=== PATIENT | female | born 2005 | race Caucasian/White ===

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

== ENCOUNTER 2023-05-02 20:35 | Emergency (ER) | payer OTHER ==
[~2023-05-02] VITALS: Ht 162.6 cm; Wt 54.4 kg
[2023-05-02 20:52] VITALS: BP 119/87
[2023-05-02 20:54] LABS: Source, Urine Clean Catch
[2023-05-02 20:58] LABS: Appearance, Urine Hazy (Clear); Bilirubin, Urine Neg (Neg); Blood, Urine 2+ (Neg); Color, Urine Yellow (P-Yellow); Glucose Qualitative, Urine Neg (Neg); Ketones, Urine Neg (Neg); Leukocyte Esterase, Urine 3+ (Neg); Nitrite, Urine Neg (Neg); Protein, Urine 2+ (Neg); Specific Gravity, Urine 1.015 (1.003-1.022); Urobilinogen, Urine NORM (Normal); pH, Urine 6.5 (5.0-8.0)
[2023-05-02 21:10] LABS: Bacteria Mod /hpf; Squamous Epithelial Cells Few /hpf (Few); White Blood Cells, Urine 50-100 /hpf (0-5)
[2023-05-02] MEDS ORDERED: ZOLOFT50 MG PO (22:15)
[2023-05-02] MEDS ORDERED: PROP10 PO (22:16)
[2023-05-03] MEDS ORDERED: CEPH500 PO (01:54)
[2023-05-03] MEDS ORDERED: ONDA4 PO (01:54)
== END 2023-05-03 02:02 | disposition home or self-care (01) ==
LOC: ER 20:35
PROVIDERS: Student in an Organized Health Care Education/Training Program
DX: N39.0 Urinary tract infection, site not specified (principal); F17.210 Nicotine dependence, cigarettes, uncomplicated; Z79.899 Other long term (current) drug therapy
CPT/HCPCS: 74176; 81001; 81025; 87077; 87086; 87186; 96372; 99283-25; A9270; J1885

== ENCOUNTER 2023-07-27 17:41 | Emergency (ER) | payer OTHER ==
[~2023-07-27] VITALS: Ht 165.1 cm; Wt 61.2 kg
[~2023-07-27 17:41] MED LIST changes: +CEPH500 PO; +ONDA4 PO; +PROP10 PO; +ZOLOFT50 MG PO
[2023-07-27 17:52] VITALS: BP 138/86
== END 2023-07-27 20:59 | disposition home or self-care (01) ==
LOC: ER 17:41
DX: L30.8 Other specified dermatitis (principal); Z87.891 Personal history of nicotine dependence
CPT/HCPCS: 81025; 99282